=== PATIENT | female | born 1955 | race Caucasian/White ===

== ENCOUNTER 2018-07-12 06:33 | Day surgery (SDC) | payer BC, MEDICARE ==
[2018-07-12] MEDS ORDERED: Sodium Chloride 0.9% 10 ML Syringe FLUSH PRN (06:45)
[2018-07-12] MEDS ORDERED: Lactated Ringers 1,000 ML IV SCH (06:45)
[2018-07-12] MEDS ORDERED: Propofol 200 MG/20 ML SDV IV ONE (08:00)
--- NOTE | 2018-07-12 08:02 | PCM.HP ---
H&P History of Present Illness - General Date of Service: 07/12/18 Admit Problem/Dx: Admission Diagnosis/Problem Admission Diagnosis/Problem Colonoscopy Source of Information: Patient, Old Records History Limitations: Reports: No Limitations - History of Present Illness Initial Comments - Free Text/Narative: Here for colonoscopy for hx polyps in 2011 - Related Data Allergies/Adverse Reactions: Allergies Allergy/AdvReac Type Severity Reaction Status Date / Time ampicillin Allergy Hives Verified 07/12/18 07:38 erythromycin base Allergy Hives Verified 07/12/18 07:38 morphine Allergy Hives Verified 07/12/18 07:38 penicillin G Allergy Hives Verified 07/12/18 07:38 [From Bicillin C-R] penicillin G procaine Allergy Hives Verified 07/12/18 07:38 [From Bicillin C-R] Home Medications: Home Meds Alendronate Sodium [Fosamax] 70 mg PO WE 07/11/18 [History] Eszopiclone 3 mg PO BEDTIME 07/11/18 [History] FLUoxetine HCl [Fluoxetine HCl] 80 mg PO DAILY 07/11/18 [History] Levothyroxine [Synthroid] 88 mcg PO DAILY 07/11/18 [History] Simvastatin [Zocor] 40 mg PO DAILY 07/11/18 [History] clonazePAM [Klonopin] 1.5 mg PO BEDTIME PRN 07/11/18 [History] lamoTRIgine [Lamictal] 200 mg PO DAILY 07/11/18 [History] traZODone HCl [Trazodone HCl] 100 mg PO BEDTIME 07/11/18 [History] Past Medical History HEENT History: Reports: Impaired Vision Cardiovascular History: Reports: High Cholesterol Respiratory History: Reports: None Gastrointestinal History: Reports: Chronic Constipation, Colon Polyp Genitourinary History: Reports: None 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: Musculoskeletal History: Reports: Fracture, Osteoporosis Neurological History: Reports: None Psychiatric History: Reports: Bipolar Endocrine/Metabolic History: Reports: Hypothyroidism Hematologic History: Reports: None Immunologic History: Reports: None Oncologic (Cancer) History: Reports: None Dermatologic History: Reports: None - Past Surgical History Head Surgeries/Procedures: Reports: None HEENT Surgical History: Reports: Tonsillectomy GI Surgical History: Reports: Appendectomy, Colonoscopy, Polypectomy Female Surgical History: Reports: Breast Biopsy, Section Musculoskeletal Surgical History: Reports: ORIF Social & Family History - Tobacco Use Smoking Status *Q: Never Smoker H&P Review of Systems - Review of Systems: Review Of Systems: ROS reveals no pertinent complaints other than HPI. Exam - Exam Exam: See Below - Vital Signs Vital Signs: Last Vital Signs Temp 98.3 F 07/12/18 07:13 Pulse 84 07/12/18 07:13 Resp 16 07/12/18 07:13 BP 109/65 07/12/18 07:13 Pulse Ox 96 07/12/18 07:13 Weight: 77.111 kg - Exam General: Alert, Oriented Lungs: Clear to Auscultation, Normal Respiratory Effort Cardiovascular: Regular Rate, Regular Rhythm GI/Abdominal Exam: Soft, Non-Tender Problem List Initiated/Reviewed/Updated: Yes Orders Last 24hrs: Active Orders 24 hr Category Date Time Status Patient Status [ADT] Routine ADT 07/12/18 06:45 Active Patient to Empty Bladder [RC] ASDIRECTED Care 07/12/18 06:45 Active Verify Patient Consent Obtain [RC] ASDIRECTED Care 07/12/18 06:45 Active Nothing Per Oral Diet [DIET] Diet 07/12/18 Breakfast Ordered Lactated Ringers [Ringers, Lactated] 1,000 ml Med 07/12/18 06:45 Active IV ASDIRECTED Sodium Chloride 0.9% [Saline Flush] Med 07/12/18 06:45 Active 10 ml FLUSH ASDIRECTED PRN Peripheral IV Insertion Adult [OM.PC] Routine Oth 07/12/18 06:45 Ordered Resuscitation Status Routine Resus Stat 07/12/18 07:40 Ordered Medication Orders Lactated Ringer's (Ringers, Lactated) 1,000 mls @ 125 mls/hr IV ASDIRECTED RK Last Admin: 07/12/18 07:50 Dose: 125 mls/hr Sodium Chloride (Saline Flush) 10 ml FLUSH ASDIRECTED PRN PRN Reason: Keep Vein Open Assessment/Plan Comment:: Hx Colon Polyps; ok to proceed with colonoscopy, consent obtained
--- NOTE | 2018-07-12 08:31 | PCM.OPNOTE ---
- General Post-Op/Procedure Note Date of Surgery/Procedure: 07/12/18 Operative Procedure(s): Colonoscopy with polypectomy Findings: Sig polyps at 20 cm Pre Op Diagnosis: Hx Colon Polyps Post-Op Diagnosis: Same Anesthesia Technique: MAC Primary Surgeon: Wil GALLEGOS in mLs: 0 Complications: None Condition: Good
--- NOTE | 2018-07-12 12:57 | OR ---
DATE OF OPERATION: 07/12/2018 SURGEON: Wil Montaño MD PREOPERATIVE DIAGNOSIS: History of colon polyps. POSTOPERATIVE DIAGNOSIS: Sigmoid colon polyp. PROCEDURES: Colonoscopy with polypectomy. ANESTHESIA: IV sedation. DESCRIPTION OF PROCEDURE: The patient was brought to the procedure room, where she was placed on her left side and IV sedation administered. Digital rectal exam was performed, which was normal. The colonoscope was inserted and advanced to the level of the cecum with some difficulty getting through a tortuous colon, requiring pressure on the abdomen. The cecum was reached and confirmed by identifying the appendiceal lumen and ileocecal valve. Prep was fair with some thick stool remaining throughout that was mostly irrigated and suctioned. Upon withdrawing the scope, the ascending, transverse, and descending colons were normal in appearance. The sigmoid colon was tortuous and had a 6-mm sessile polyp located 20 cm from the anal verge, that was removed with the cautery snare and retrieved in the polyp trap. Rectum was normal and retroflexion was normal. Air was removed and the scope withdrawn. The patient tolerated the procedure well and returned to Recovery in a stable condition. The patient will be contacted with the pathology report when it returns. If this is adenomatous, she should undergo repeat colonoscopy again in three years. If it is hyperplastic, she can wait five years until her next surveillance colonoscopy. /[id number] ERIKA/LISA
== END 2018-07-12 09:55 | disposition home or self-care (01) ==
LOC: FB.SDS 06:33
PROVIDERS: ATTEND Surgery
DX: Z12.11 Encounter for screening for malignant neoplasm of colon (principal); K63.5 Polyp of colon; K56.2 Volvulus; E78.00 Pure hypercholesterolemia, unspecified; E03.9 Hypothyroidism, unspecified; Z86.010 Personal history of colon polyps; Z88.0 Allergy status to penicillin; Z88.1 Allergy status to other antibiotic agents; Z88.5 Allergy status to narcotic agent
CPT/HCPCS: 45385; 88305; J2704; J7120